=== PATIENT | female | born 1995 | race Caucasian/White ===

== ENCOUNTER 2024-10-11 09:24 | Inpatient (IN) ==
--- NOTE | 2024-10-11 09:36 | History & Physical Report ---
Date of Service October 11, 2024 Assessment & Plan (1) Supervision of normal first : Plan Admit for labor. +ctx, AFVSS, FHT cat 1. Rh+, GBS neg, ri. Does not want an epidural at this time. Will consider arom History of Present Illness Chief Complaint: labor Primary Care Provider: Prabha Villavicencio MD Patient is a 29 y/o female G1 currently at 39 5/7 WGA (w LORI 10/13/24 as determined by LMP) who is here in early labor. Contractions started last night ~10pm, have increased in intensity, 5~7 min apart, lasting over 1 min, cannot talk/walk through This has been uncomplicated. She has had regular appointments with OB. She denies fevers, chills, CASTILLO, SOB, chest pain, leg swelling, or n/v exceeding baseline -related symptoms. +ctx; +FM; no rom or vb Blood type: A+ Antibody screen: Neg GBS: Neg Rubella: Immune VDRL/RPR: Neg Gonorrhea: Not detected Chalmydia: Not detected HIV: Non-reactive HbSAg: Non-reactive Other screens: cff-DNA - low risk Allergies Allergy/AdvReac Type Severity Reaction Status Date / Time Sulfa (Sulfonamide Allergy Mild Rash Verified 10/11/24 09:45 Antibiotics) sulfamethoxazole Allergy Mild Rash Verified 10/11/24 09:45 [From Bactrim] trimethoprim [From Bactrim] Allergy Mild Rash Verified 10/11/24 09:45 Home Medications Medication Instructions Recorded Confirmed Type 21-iron fu-folic acid 1 tab PO DAILY 02/28/24 10/11/24 History [ Complete] ferrous sulfate 1 tab PO DAILY 08/22/24 10/11/24 History Past Med/Surg History Problem List Supervision of normal first Medical History Varicella vaccination Surgical History No pertinent past surgical history Family History Denies family history of Ovarian cancer Prostate cancer Breast cancer Colorectal cancer Social History (Updated 02/28/24 @ 15:06 by Lorin Herrera Smoking Status: Never smoker Do You Dip or Chew Tobacco: No; Hx Alcohol Use: No Hx Substance Use: No Preferred Language: Swazi Communication Ability: Effective 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 Physical Exam Physical Exam: General: Alert and oriented. No acute distress CV: Regular rate and rhythm. No murmurs. Respiratory: CTA bilaterally. No increased work of breathing. Symmetrical chest rise. Abdomen: Gravid: Soft, nontender upon palpation Pelvic: Dilated 4 cm; Effacement 100%; Station -[address] Jackson Lower extremities: NO LE edema. No deep calf pain. Paul's negative bilaterally. Results & Data Results & Data Vital Signs (Past 12 Hours) Vital Signs Pulse BP 10/11/24 09:32 91 H 127/71 Supervising Physician Co-Signing Physician Notes Resident Physician Supervision Note: I interviewed and examined the patient. Discussed with Dr. Baptiste and agree with findings and plan as documented in the note. Any exceptions or clarifications are listed here: [None] Documented By: Sayra Garcia MD, FACOG Resident Activity Tracking Resident Involvement: Resident Care Provided Care Provided: Adult Hospital Medicine and OB Delivery
[2024-10-11] MEDS ORDERED: LIDOCAINE 1% LOCAL 20 ML VIAL INFIL PRN (09:42)
[2024-10-11] MEDS ORDERED: OXYTOCIN 30 UNITS/NSS 30 UNITS/500 ML BAG IV PRN ×2 (09:42→17:09)
[2024-10-11 10:40] LABS: Hematocrit (blood only) 36.2 % (37.0-47.0); Hemoglobin 12.3 g/dl (12.0-16.0); Mean Corpuscular Hemoglobin 29.5 pg (25.0-34.0); Mean Corpuscular Volume 86.8 fL (80.0-100.0); Mean Platelet Volume 9.9 fL (9.4-12.4); Platelet Count 308 K/uL (130-400); RDW Coefficient of Variation 12.4 % (11.5-14.5); Red Blood Count 4.17 M/uL (4.20-5.40); White Blood Count 18.13 K/ul (4.8-10.8)
[2024-10-11] MEDS: LACTATED RINGER'S 1,000 ML IV PRN (16:35)
[2024-10-11] MEDS ORDERED: BUPIVACAINE 0.25% PF 30 ML VIAL EPI PRN (16:42)
[2024-10-11] MEDS ORDERED: NALOXONE HCL 0.4 MG/1 ML VIAL/CARP IV PRN (16:42)
[2024-10-11] MEDS ORDERED: ROPIVACAINE 0.5% PF 5 MG/ML 20 ML VIAL EPI PRN (16:42)
[2024-10-11] MEDS ORDERED: LIDOCAINE 2% MPF LOCAL 5 ML VIAL EPI PRN (16:42)
[2024-10-11] MEDS ORDERED: ONDANSETRON INJ 2 MG/ML 2 ML VIAL IV PRN (16:42)
[2024-10-11] MEDS ORDERED: ePHEDrine sulfate 50 MG/ML AMP IV PRN (16:42)
[2024-10-11] MEDS ORDERED: diphenhydrAMINE 50 MG/ML VIAL IV PRN (16:42)
[2024-10-11] MEDS ORDERED: SODIUM CHLORIDE 0.9% PF INJ 10 ML VIAL EPI PRN (16:42)
[2024-10-11] MEDS ORDERED: NALOXONE HCL 1 MG in SODIUM CHLORIDE 0.9% 1,000 ML IV PRN (16:42)
[2024-10-11] MEDS ORDERED: NALBUPHINE HCL INJ 10 MG/ML AMP IV PRN (16:42)
[2024-10-11] MEDS ORDERED: fentaNYL citrate PF 100 MCG/2 ML VIAL EPI PRN (16:42)
--- NOTE | 2024-10-11 16:46 | Anesthesiology Consultation ---
Date of Service October 11, 2024 Assessment & Plan (1) Encounter for pre-operative examination: Chart Review Chart Review: Patient NOT seen in Pre Admission Testing and Acceptable Risk for Labor Epidural Consults Requested none History Height/Weight Height: 5 ft 7 in Weight: 79.746 kg Allergies Allergy/AdvReac Type Severity Reaction Status Date / Time Sulfa (Sulfonamide Allergy Mild Rash Verified 10/11/24 09:45 Antibiotics) sulfamethoxazole Allergy Mild Rash Verified 10/11/24 09:45 [From Bactrim] trimethoprim [From Bactrim] Allergy Mild Rash Verified 10/11/24 09:45 Medications Home Medications Medication Instructions Recorded Confirmed Last Taken 21-iron fu-folic acid 1 tab PO DAILY 02/28/24 10/11/24 10/10/24 19:00 [ Complete] ferrous sulfate 1 tab PO DAILY 08/22/24 10/11/24 10/10/24 19:00 Active Medications Generic Name Dose Route Start Last Admin Trade Name Freq PRN Reason Stop Dose Admin Lactated Ringer's 1,000 mls @ 125 mls/hr 10/11/24 09:42 10/11/24 16:35 Lr IV 10/12/24 09:41 999 mls/hr .Q8H PRN Administration L&D Protocol Protocol Past Medical History Medical History (Updated 10/11/24 @ 16:45 by Ananda Jim MD) Encounter for pre-operative examination Varicella vaccination Exercise / Class Metabolic Activity II 4-5 Yardwork/Stairs/Walk up hill Past Family History Family History Denies family history of Ovarian cancer Prostate cancer Breast cancer Colorectal cancer Past Surgical History Surgical History No pertinent past surgical history Past Anesthesia History No Hx of Anesthesia Complications and No Family Hx of Anesthesia Complications Social History Smoking Status: Never smoker Do You Dip or Chew Tobacco: No Hx Alcohol Use: No Hx Substance Use: No Physical Exam Vital Signs Last Vital Signs Temp 37.2 C 10/11/24 15:30 Pulse 112 H 10/11/24 17:05 Resp 20 10/11/24 15:30 BP 144/84 H 10/11/24 17:05 Pulse Ox 99 10/11/24 17:04 Testing Laboratory Results 10/11/24 10:13
[2024-10-11] MEDS: fentaNYL citrate PF 100 MCG/2 ML VIAL ONE (17:00)
[2024-10-11] MEDS: BUPIVACAINE 0.25% PF 30 ML VIAL ONE (17:00)
[2024-10-11] MEDS: LIDOCAINE 2%/EPINEPHRINE 1:200,000 20 ML PF ONE (17:01)
[2024-10-11] MEDS: fentANYL 2 MCG/ML BUPIVacaine 0.125%-NSS 100ML BAG ONE (17:15)
[2024-10-11] MEDS: SODIUM CHLORIDE 0.9% PF INJ 10 ML VIAL ONE (17:18)
[2024-10-11] MEDS: fentaNYL citrate PF 100 MCG/2 ML VIAL EPI STA (17:19)
[2024-10-11] MEDS: LIDOCAINE 2%/EPINEPHRINE 1:200,000 20 ML PF EPI STA (17:19)
[2024-10-11] MEDS: BUPIVACAINE 0.25% PF 30 ML VIAL EPI STA (17:19)
[2024-10-11] MEDS: OXYTOCIN 30 UNITS/NSS 30 UNITS/500 ML BAG IV PRN (18:00)
[2024-10-11] MEDS: SODIUM CHLORIDE 0.9% PF INJ 10 ML VIAL EPI STA (18:17)
[2024-10-11] MEDS: ePHEDrine sulfate 50 MG/ML AMP ONE (18:38)
[2024-10-11] MEDS: diphenhydrAMINE 50 MG/ML VIAL IV STA (18:50)
[2024-10-11] MEDS: fentANYL 2 MCG/ML BUPIVacaine 0.125%-NSS 100ML BAG EPI PRN (23:41)
[2024-10-12] MEDS ORDERED: ACETAMINOPHEN 325 MG TAB PO PRN (04:15)
[2024-10-12] MEDS ORDERED: DIPHTHER/TETAN/PERTUS Vaccine (Tdap, Adol/Adult) 0.5mL IM ONE (04:15)
[2024-10-12] MEDS ORDERED: HYDROCORTISONE ACETATE 25 MG SUPP PR PRN (04:15)
[2024-10-12] MEDS ORDERED: oxyCODONE/ACETAMINOPHEN 5mg/325mg TAB PO PRN (04:15)
[2024-10-12] MEDS ORDERED: OXYTOCIN 30 UNITS/NSS 30 UNITS/500 ML BAG IV PRN (04:15)
--- NOTE | 2024-10-12 04:20 | Delivery Summary ---
Vaginal Delivery Summary Date of Service October 12, 2024 Vaginal Delivery Summary VAVD and 1st Degree LAC Patient is a 29-year-old 1 P0 female EDC of 10/13/2024 who presented in active labor. Membranes were ruptured for clear fluid. She did require augmentation of her labor. She received effective epidural analgesia. She progressed to full dilation and pushed for over 2-1/2 hours at which point there was no further descent of the head. He was at +3 station at that time. Because of maternal exhaustion Kiwi vacuum device was offered the patient accepted. After emptying her bladder for small amount of urine, the vacuum was placed on the vertex. Through 2 contractions without any pop-off's. The head was brought to . She was then able to deliver the head at this time with active pushing. The shoulders and the rest the was delivered without maternal effort. He was vigorous and crying upon delivery. He was placed on mother's abdomen for further attention and drying. After 1 minute, the cord was clamped and cut. After cord blood was obtained, the placenta was expressed intact with a three-vessel cord. First-degree perineal laceration was repaired with 3-0 chromic in the usual fashion. bleeding was controlled with dilute Pitocin and fundal massage. Mother and infant were doing well after delivery. QBL is 142 mL. [facility] Vaginal Delivery Charge Delivery Type Details: VAVD and 1st Degree LAC
[2024-10-12] MEDS: BENZOCAINE 20% SPRY 85 APPLN/85 GM CAN EXT PRN (07:20)
[2024-10-12] MEDS: IBUPROFEN 600 MG TAB PO PRN (07:21)
--- NOTE | 2024-10-12 07:55 | Anesthesia Procedure Note ---
Date of Service October 12, 2024 Anesthesia Post Epidural Note Vital Signs Vital Signs: Temp Pulse Resp BP Pulse Ox 36.9 C 114 H 18 120/63 97 10/12/24 05:05 10/12/24 06:08 10/12/24 06:05 10/12/24 06:08 10/12/24 03:49 Pain Intensity Lower Abdomen: Pain Intensity: 0 Notes Mental Status: alert / awake / arousable and participated in evaluation Nausea / Vomiting: adequately controlled Pain: adequately controlled Airway Patency, RR, SpO2: stable & adequate BP & HR: stable & adequate Hydration State: stable & adequate Neuraxial Anesthesia: was administered and sensory block is resolving Anesthetic Complications: no major complications apparent Epidural: Removed without complications and With tip intact
[2024-10-12] MEDS: DOCUSATE SODIUM 100 MG CAP PO SCH (08:43)
[2024-10-12] MEDS: PRENATAL VITAMIN 1 TAB PO SCH (08:43)
[2024-10-13 06:18] LABS: Hematocrit (blood only) 29.5 % (37.0-47.0); Hemoglobin 10.1 g/dl (12.0-16.0); Mean Corpuscular Hemoglobin 30.8 pg (25.0-34.0); Mean Corpuscular Hgb Conc 34.2 g/dL (32.0-36.0); Mean Corpuscular Volume 89.9 fL (80.0-100.0); Mean Platelet Volume 9.8 fL (9.4-12.4); Platelet Count 254 K/uL (130-400); RDW Coefficient of Variation 12.8 % (11.5-14.5); RDW Standard Deviation 42.2 fL (36.4-46.3); Red Blood Count 3.28 M/uL (4.20-5.40); White Blood Count 23.12 K/ul (4.8-10.8)
[2024-10-13 07:12] VITALS: BP 106/67; PULSE 89; RESP 18; TEMP 98.4; O2SAT 98
--- NOTE | 2024-10-13 09:17 | Obstetrical Progress Note ---
Date of Service October 13, 2024 Assessment & Plan (1) Encounter for care and examination after delivery: Day 2 status post repeat . Patient doing well. Requesting discharge. Subjective Ambulation: ambulating normally Voiding: no voiding problems Passing Gas:: Yes Diet Tolerance:: regular diet Lochia:: Moderate Feeding Type:: breast feeding Denying any calf pain/tenderness. Physical Exam Constitutional WD/WN, vitals as above Respiratory normal respiratory effort; no respiratory distress and no labored breathing Cardiovascular Extremities: no calf tenderness Gastrointestinal (Abdomen) Inspection/Auscultation: abdomen normal to inspection; abdomen not distended Percussion/Palpation: abdomen soft; abdomen nontender, no guarding and abdomen not rigid Incision clean, dry and intact. Genitourinary OB Exam Abdomen: + fundal height Fundus: + firm and + relation to umbilicus (Below); not tender or not boggy Results & Data Vital Signs (Past 12 Hours) Vital Signs Temp Pulse Resp BP Pulse Ox O2 Del Method 10/13/24 07:10 36.9 C 89 18 106/67 98 Room Air 10/13/24 03:50 36.5 C 93 H 16 102/69 96 Room Air 10/13/24 00:30 36.6 C 95 H 16 101/64 96 Room Air
[2024-10-13] MEDS ORDERED: bisacodyL 5 MG TABEC PO SCH (20:00)
[2024-10-14] MEDS ORDERED: bisacodyL 10 MG SUPP PR PRN
== END 2024-10-13 14:39 | disposition home or self-care (01) | DRG 807 ==
LOC: OPB 09:24 → 4S1 09:25 → 4E2 10-12 07:34